=== PATIENT | male | born 1995 | race Hispanic/Latino ===

== ENCOUNTER 2023-06-17 04:49 | Emergency (ER) | payer OTHER ==
[~2023-06-17] VITALS: Ht 162.6 cm; Wt 68.0 kg
[2023-06-17 04:50] VITALS: BP 127/69; PULSE 71; RESP 19
== END 2023-06-17 05:10 | disposition left against medical advice (07) ==
LOC: EDH 04:49
DX: R68.89 Other general symptoms and signs (principal); Z53.21 Procedure and treatment not carried out due to patient leaving prior to being seen by health care provider
CPT/HCPCS: 99281